=== PATIENT | male | born 1990 | race Caucasian/White ===

== ENCOUNTER 2018-12-18 18:44 | Emergency (ER) | payer OTHER ==
[~2018-12-18] VITALS: Ht 190.5 cm; Wt 99.8 kg
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
--- NOTE | 2018-12-18 19:19 | Diagnostic Imaging Report ---
INDICATION: Pain with deep breathing. PA and lateral views were obtained. FINDINGS: The heart size, mediastinal configuration, and pulmonary vascularity are within normal limits. There is no pleural effusion, pneumothorax, or pneumonia. The osseous structures are unremarkable. IMPRESSION: No acute cardiopulmonary abnormality. Dictated by: Dictated on workstation # [id number]
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
[2018-12-18 19:36] VITALS: BP 171/83
== END 2018-12-18 19:37 | disposition home or self-care (01) ==
LOC: EDUNIT# 18:44 → ER 18:46
DX: S20.211A Contusion of right front wall of thorax, initial encounter (principal); V48.9XXA Unspecified car occupant injured in noncollision transport accident in traffic accident, initial encounter
CPT/HCPCS: 71046; 72125; 99282